=== PATIENT | female | born 1980 | race Asian ===

== ENCOUNTER 2018-03-06 22:52 | Emergency (ER) | payer SELFPAY ==
[~2018-03-06] VITALS: Ht 165.1 cm; Wt 55.9 kg
[2018-03-06 22:57] VITALS: BP 111/71
== END 2018-03-07 00:47 | disposition left against medical advice (07) ==
LOC: EMS 22:54
DX: M54.6 Pain in thoracic spine (principal); Z53.21 Procedure and treatment not carried out due to patient leaving prior to being seen by health care provider